=== PATIENT | female | born 1985 | race Caucasian/White ===

== ENCOUNTER 2017-01-03 03:03 | Inpatient (IN) | payer BC, OTHER ==
[2017-01-03] VITALS (7 sets, daily range): BP systolic 113–133; BP diastolic 63–80
[~2017-01-03] VITALS: Ht 160 cm; Wt 100.0 kg
[~2017-01-03 03:03] MED LIST: ACETAMINOPHEN-1 EAC1 PO; BEYAZ 28 TABLE1 EACH PO; CLARITIN10 M3; ENDOCET 5-3251 EACH PO; HYDROCODON-ACE1 EAC7 PO; MISOPROSTOL200 MCG PO; MOTRIN800 MG PO; PAXIL40 MG PO; PERCOCET 5/31 TABLET PO; PRENATAL TABLE1 EACH PO; REGLAN10 MG PO; VICODIN 5-3001 EACH PO; WELLBUTRIN100 MG PO; ZOFRAN4 MG PO; ZOFRAN8 MG PO
[2017-01-03] MEDS ORDERED: IRON325 MG PO (04:27)
[2017-01-03] MEDS ORDERED: CITRACAL SOFT1 EACH PO (04:28)
[2017-01-03 04:29] LABS: EOSINOPHIL (%) 0.6 % (0-5); EOSINOPHIL COUNT 0.1 K/uL (0-0.3); HEMATOCRIT 36.4 % (36.0-46.0); IMMATURE GRANULOCYTE (%) 0.4 % (0.0-0.7); MCH 32.5 PG (29.0-34.0); MCV 98.6 FL (83-99); MEAN PLAT.VOLUME 11.4 uM^3 (9.5-12.4); MONOCYTE (%) 5.3 % (3-12); MONOCYTE COUNT 0.5 K/uL (0-0.8); NEUTROPHIL (%) 73.1 % (45-76); PLATELET COUNT 193 K/uL (156-360); RBC DIS.WIDTH-CV 14.6 % (11.8-14.6); RBC DIS.WIDTH-SD 53.7 % (39-53); RED BLOOD COUNT 3.69 M/uL (3.80-5.20); WHITE BLOOD COUNT 9.6 K/uL (4.1-10.2)
[2017-01-03] MEDS ORDERED: MOTRIN800 MG PO (06:24)
[2017-01-03] MEDS ORDERED: PERCOCET 5/31 TABLET PO (06:24)
[2017-01-04 03:41] VITALS: BP 106/59
[2017-01-04 07:21] LABS: EOSINOPHIL (%) 0.2 % (0-5); HEMATOCRIT 25.8 % (36.0-46.0); IMMATURE GRANULOCYTE (%) 0.5 % (0.0-0.7); IMMATURE GRANULOCYTE COUNT 0.1 K/uL; INSTRUMENT ABS NEUTROPHIL CT 7.2 K/uL; LYMPHOCYTE COUNT 2.2 K/uL (1.0-2.8); MCH 32.4 PG (29.0-34.0); MCHC 32.2 G/DL (30.0-36.0); MCV 100.8 FL (83-99); MEAN PLAT.VOLUME 11.5 uM^3 (9.5-12.4); MONOCYTE (%) 5.4 % (3-12); MONOCYTE COUNT 0.5 K/uL (0-0.8); NEUTROPHIL (%) 71.9 % (45-76); NEUTROPHIL COUNT 7.2 K/uL (1.8-6.4); PLATELET COUNT 178 K/uL (156-360); RBC DIS.WIDTH-CV 15.1 % (11.8-14.6); RBC DIS.WIDTH-SD 55.7 % (39-53); WHITE BLOOD COUNT 10.1 K/uL (4.1-10.2)
[2017-01-04 07:27] LABS: RED BLOOD COUNT 2.56 M/uL (3.80-5.20)
[2017-01-04 08:07] VITALS: BP 109/64
[2017-01-04 23:44] VITALS: BP 115/54
[2017-01-05 23:13] VITALS: BP 125/72
[2017-01-06 07:25] VITALS: BP 131/69
[2017-01-06 15:06] VITALS: BP 119/73
[2017-01-06 23:11] VITALS: BP 136/68
== END 2017-01-07 18:26 | disposition home or self-care (01) | DRG 765 ==
LOC: LDRP-OP → 2WEST 03:04 → LDRP-OP 03-04 12:25
PROVIDERS: Obstetrics & Gynecology
PROC: 10D00Z1 Extraction of Products of Conception, Low, Open Approach (ICD-10-PCS; principal; 2017-01-03)
DX: O32.1XX1 Maternal care for breech presentation, fetus 1 (principal); O60.14X0 Preterm labor third trimester with preterm delivery third trimester, not applicable or unspecified; O30.043 Twin pregnancy, dichorionic/diamniotic, third trimester; O42.913 Preterm premature rupture of membranes, unspecified as to length of time between rupture and onset of labor, third trimester; Z3A.35 35 weeks gestation of pregnancy; Z37.2 Twins, both liveborn
CPT/HCPCS: 85025; 86850; 86900; 86901; 88307; J1170; J1885; J2405; J2765; J3010; J7040; J7120

== ENCOUNTER → 2017-02-10 | Outpatient (CLI) | payer BC, OTHER ==
[~2017-02-10] MED LIST changes: +CITRACAL SOFT1 EACH PO; +IRON325 MG PO
== END | disposition home or self-care (01) ==
LOC: LAC 13:17
DX: O92.79 Other disorders of lactation (principal)
CPT/HCPCS: G0463

== ENCOUNTER → 2017-02-26 | Outpatient (CLI) | payer BC, OTHER | END | disposition home or self-care (01) | LOC: LAC 13:26 | DX: O92.79 Other disorders of lactation (principal) | CPT/HCPCS: G0463 ==